=== PATIENT | male | born 2000 | race Caucasian/White ===

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

== ENCOUNTER 2022-03-09 16:14 | Emergency (ER) | payer OTHER ==
[~2022-03-09] VITALS: Ht 190.5 cm; Wt 64.0 kg
== END 2022-03-09 21:13 | disposition left against medical advice (07) ==
LOC: ED 16:14
DX: Z53.21 Procedure and treatment not carried out due to patient leaving prior to being seen by health care provider (principal)
CPT/HCPCS: 87502; C9803; U0003

== ENCOUNTER 2022-03-20 15:34 | Emergency (ER) | payer OTHER ==
[~2022-03-20] VITALS: Ht 190.5 cm; Wt 64.0 kg
--- OUTSIDE RECORDS SUMMARY | 2022-03-20 15:36 | XMS ---
PreManage Notification: MP KEITA Security Contact Center Assistant Events 1 event(s) in the past 18 months Most recent security events: Elopement at [facility] 03/09/2022 16:15 - Patient eloped before treatment completed. - Patient with suicidal and/or homicidal ideations eloped. - Patient eloped with IV in place. Details: PATIENT LWBS CRITERIA MET - [facility] - 2 Visits in 30 Days CARE PROVIDERS There are no care providers on record at this time. [place] has no Care Guidelines for this patient. E.Iris. VISIT COUNT (12 MO.) 2 [facility] H. TOTAL 2 NOTE: Visits indicate total known visits. ED/UCC VISIT TRACKING (12 MO.) 03/20/2022 15:34 [facility] [place] TYPE: Emergency COMPLAINT: - HIGH BLOOD PRESSURE 03/09/2022 16:15 [facility] [place] TYPE: Emergency COMPLAINT: - DIFFICULTY BREATHING DIAGNOSES: - Procedure and treatment not carried out due to patient leaving prior to being seen by health care provider - Procedure and treatment not carried out due to patient leaving prior to being seen by health care provider - Contact with and (suspected) exposure to COVID-19 - Other general symptoms and signs INPATIENT VISIT TRACKING (12 MO.) No inpatient visits to display in this time frame [email or web address]
--- NOTE | 2022-03-23 13:42 | EKG ---
[facility] [address] [place] [address] Signed Normal sinus rhythm Rightward axis Incomplete right bundle branch block Borderline ECG When compared with ECG of 03-APR-2017 15:21, PREVIOUS ECG IS PRESENT Confirmed by GLADIS ESPINOZA MD ([id number]) on 03/23/2022 1:42:19 PM Electronically Signed By: GLADIS ESPINOZA MD 03/23/22 1342 PATIENT NAME: MP KEITA Electrocardiogram DATE OF : [birth year] PHYSICIAN: GLADIS ESPINOZA MD REPORT #: [id number] REPORT IS CONFIDENTIAL AND NOT TO BE RELEASED WITHOUT AUTHORIZATION
== END 2022-03-20 19:35 | disposition home or self-care (01) ==
LOC: ED 15:34
DX: B34.9 Viral infection, unspecified (principal)
CPT/HCPCS: 36415; 71045; 84484; 93005; 93010; 99284-25